=== PATIENT | female | born 1960 | race Caucasian/White ===

== ENCOUNTER 2019-02-11 19:59 | Emergency (ER) | payer BC ==
[~2019-02-11] VITALS: Ht 165.1 cm; Wt 78.9 kg
[2019-02-11 20:08] VITALS: Ht 165.1 cm; Wt 78.9 kg
[2019-02-11 20:59] LABS: BASOPHIL % 0.3 % (0-2); PLATELET COUNT 285 x10^3mcL (130-400); RED CELL DISTRIBUTION WIDTH 13.1 % (11.5-14.5)
[2019-02-11 21:08] LABS: CALCIUM 8.7 mg/dL (8.5-10.1); CARBON DIOXIDE 30.4 mmol/L (21-32); CHLORIDE SERUM 104 mmol/L (98-107); GFR1 > 60 mL/min; GLUCOSE SERUM 93 mg/dL (74-106); POTASSIUM SERUM 4.1 mmol/L (3.5-5.1); SODIUM SERUM 142 mmol/L (136-145)
[2019-02-11 21:13] LABS: ALBUMIN 3.9 g/dL (3.4-5.0); ALKALINE PHOSPHATASE 89 U/L (46-116); ALT/SGPT 17 U/L (14-59); AST/SGOT 17 U/L (15-37); BILIRUBIN TOTAL 0.6 mg/dL (0.20-1.00); TOTAL PROTEIN, SERUM 7.5 g/dL (6.4-8.2)
[2019-02-11 21:16] LABS: UA SPECIFIC GRAVITY <=1.005 (1.005-1.035); microscopic required? YES; urine erythrocyte TRACE (NEGATIVE)
[2019-02-11 21:27] LABS: T3 TOTAL 0.91 ng/mL
[2019-02-11 21:41] LABS: FREE T4 0.91 ng/dL (0.76-1.46); FREE THYROXINE INDEX 2.2 ug/dL (1.4-4.5); T4(THYROXINE) 6.5 ug/dL (4.7-13.3)
[2019-02-11 22:58] VITALS: BP 128/75
== END 2019-02-11 22:58 | disposition home or self-care (01) ==
LOC: ED 19:59
PROVIDERS: Emergency Medicine
DX: R53.1 Weakness (principal); R42 Dizziness and giddiness; H53.8 Other visual disturbances; E03.9 Hypothyroidism, unspecified; Z88.0 Allergy status to penicillin; Z88.1 Allergy status to other antibiotic agents
CPT/HCPCS: 84439; J7030

== ENCOUNTER 2019-07-13 21:15 | Emergency (ER) | payer BC ==
[~2019-07-13] VITALS: Ht 165.1 cm; Wt 81.2 kg
[2019-07-13 21:28] VITALS: Ht 165.1 cm; Wt 81.2 kg
[2019-07-13 23:42] VITALS: BP 158/79
== END 2019-07-13 23:42 | disposition home or self-care (01) ==
LOC: ED 21:15
DX: J02.9 Acute pharyngitis, unspecified (principal); R05 Cough; E03.9 Hypothyroidism, unspecified; Z88.0 Allergy status to penicillin; Z88.1 Allergy status to other antibiotic agents
CPT/HCPCS: J1885

== ENCOUNTER 2019-11-03 18:49 | Emergency (ER) | payer BC ==
[~2019-11-03] VITALS: Ht 170.2 cm; Wt 80.3 kg
[2019-11-03 19:02] VITALS: Ht 170.2 cm; Wt 80.3 kg
[2019-11-03 20:13] VITALS: BP 138/78
== END 2019-11-03 20:13 | disposition home or self-care (01) ==
LOC: ED 18:49
DX: J02.9 Acute pharyngitis, unspecified (principal); H92.02 Otalgia, left ear; Z88.0 Allergy status to penicillin; Z88.1 Allergy status to other antibiotic agents
CPT/HCPCS: J1885